=== PATIENT | female | born 2000 | race Caucasian/White ===

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

== ENCOUNTER 2025-03-11 23:03 | Emergency (ER) | payer OTHER ==
[~2025-03-11] VITALS: Ht 167.6 cm; Wt 67.0 kg
[2025-03-11 23:07] VITALS: TEMP 98.4
[2025-03-11] MEDS: normal saline 1000ML IV soln IVB ONE (23:34)
[2025-03-11] MEDS: diazepam inj 5 MG/ML inj. IV ONE (23:35)
[2025-03-12 00:13] LABS: BASOPHILS % (AUTO) 0.2 % (0-1); LYMPHOCYTES # (AUTO) 0.6 X10'3 (1.1-4.8); MEAN CORPUSCULAR VOLUME 87.3 FL (78-98)
[2025-03-12 00:15] LABS: EOSINOPHILS % (AUTO) 0.1 % (0-6); HEMATOCRIT 33.8 % (35.0-45.0); HEMOGLOBIN 11.6 g/dl (12.0-16.0); LYMPHOCYTES % (AUTO) 3.5 % (21-51); MEAN CORPUSCULAR HGB CONC 34.3 g/dL (33.0-36.5); MEAN PLATELET VOLUME 8.3 FL (7.4-10.4); MONOCYTES # (AUTO) 2.4 X10'3 (0-0.9); MONOCYTES % (AUTO) 13.4 % (2-12); NEUTROPHILS # (AUTO) 14.7 X10'3 (1.8-7.7); NEUTROPHILS % (AUTO) 82.8 % (42-75); PLATELET COUNT 214 X10'3 (140-440); RED BLOOD COUNT 3.87 X10'6 (4.20-5.60); RED CELL DISTRIBUTION WIDTH 16.4 % (11.5-14.5); WHITE BLOOD COUNT 17.8 X10'3 (4.5-11.0)
[2025-03-12 00:23] LABS: ALANINE AMINOTRANSFERASE 30 U/L (12-78); ALBUMIN 2.7 G/DL (3.4-5.0); ALBUMIN/GLOBULIN RATIO 0.6 (1.1-1.5); ALKALINE PHOSPHATASE 106 IU/L (46-116); ANION GAP 11 (8-16); ASPARTATE AMINO TRANSFERASE 49 U/L (10-37); BILIRUBIN,TOTAL 0.6 MG/DL (0.1-1.0); BLOOD UREA NITROGEN 12 MG/DL (7-18); BUN/CREATININE RATIO 10.5 (10.0-20.0); CALCIUM 8.5 MG/DL (8.5-10.1); CHLORIDE 99 MMOL/L (99-107); CREATININE 1.14 MG/DL (0.40-0.90); ETHANOL < 10 MG/DL (<10); GLUCOSE 201 MG/DL (70-104); SODIUM 134 MMOL/L (135-145); TOTAL CARBON DIOXIDE 24.1 MMOL/L (24-32); eCRCL 72 ML/MIN; eGFR 60 ML/MIN
[2025-03-12 00:24] LABS: HCG SERUM QL NEGATIVE
[2025-03-12 00:26] LABS: POTASSIUM 2.9 MMOL/L (3.5-5.1)
[2025-03-12] MEDS ORDERED: KEP500T PO (01:10)
[2025-03-12] MEDS: potassium Cl 20 mEq SR tablet PO ONE (01:19)
[2025-03-12] MEDS: levetiracetam 250mg tablet PO ONE (01:20)
[2025-03-12 01:25] VITALS: BP 126/89; PULSE 78; RESP 15; O2SAT 99
== END 2025-03-12 01:28 | disposition home or self-care (01) ==
LOC: ER 23:03
DX: R56.9 Unspecified convulsions (principal); R42 Dizziness and giddiness; Z20.822 Contact with and (suspected) exposure to COVID-19
CPT/HCPCS: 36415; 71045; 80053; 80320; 84703; 85025; 87502; 87503; 87811; 96361; 96374; 99284; J3360; J7030